=== PATIENT | female | born 1970 | race Hispanic/Latino ===

== ENCOUNTER 2017-10-07 18:00 | Inpatient (IN) | payer OTHER ==
[~2017-10-07] VITALS: Ht 157.5 cm; Wt 112.8 kg
[2017-10-07] MEDS ORDERED: ONDANSETRON HCL 4 MG/2 ML VIAL ONE (18:30)
[2017-10-07] MEDS ORDERED: DICYCLOMINE HCL 10 MG/ML 2ML AMP IM ONE (18:31)
[2017-10-07] MEDS ORDERED: FAMOTIDINE/PF 20 MG/2 ML VIAL IV ONE (18:31)
[2017-10-07] MEDS ORDERED: SODIUM CHLORIDE 0.9% 1000ML 1,000 ML IV ONE (18:31)
[2017-10-07] MEDS ORDERED: KETOROLAC TROMETHAMINE 30MG/ML ONE (18:31)
[2017-10-07 18:44] LABS: BASOPHILS % (AUTO) 0.8 % (0.0-5.0); LYMPHOCYTES % (AUTO) 12.2 % (21.0-51.0); MEAN CORPUSCULAR HEMOGLOBIN 23.6 pg (27.0-33.0); MEAN CORPUSCULAR VOLUME 71.4 fL (79-99); MONOCYTES % (AUTO) 5.3 % (3.0-13.0); NEUTROPHILS % (AUTO) 80.7 % (40.0-77.0); PLATELET COUNT (AUTO) 330 K/uL (130-400); RED BLOOD CELL COUNT(AUTO) 4.62 MIL/uL (4.00-5.50); RED CELL DISTRIBUTION WIDTH 17.5 % (11.0-15.5); WHITE BLOOD COUNT (AUTO) 10.3 K/uL (4.8-10.8)
[2017-10-07 18:58] LABS: CREATININE 0.8 mg/dL (0.5-1.5); POTASSIUM 3.5 mmol/L (3.5-5.1)
[2017-10-07 19:01] LABS: APPEARANCE,URINE CLOUDY (CLEAR); BILIRUBIN,URINE SMALL (NEGATIVE); GLUCOSE, URINE (UA) NEGATIVE (NEGATIVE); KETONES,URINE 5 mg/dL (NEGATIVE); LEUKOCYTE ESTERASE ,URINE TRACE (NEGATIVE); NITRATE,URINE NEGATIVE (NEGATIVE); OCCULT BLOOD,URINE LARGE (NEGATIVE); PH,URINE 6.5 (5.0-8.0); PROTEIN,URINE 30 (NEGATIVE)
[2017-10-07 19:02] LABS: ALBUMIN 3.7 g/dL (3.5-5.0); BILIRUBIN,TOTAL 1.4 mg/dL (0.2-1.0); TOTAL PROTEIN, SERUM 8.1 g/dL (6.0-8.3)
[2017-10-07 19:05] LABS: COLOR,URINE AMBER (YELLOW)
[2017-10-07 19:06] LABS: HCG,QUAL RESULT NEGATIVE (NEGATIVE)
[2017-10-07 19:21] LABS: RBC,URINE >100 /HPF (0-1)
[2017-10-07 19:22] LABS: BACTERIA,URINE Few /HPF (None Seen); SQUAMOUS EPITHELIAL CELL,UR Few /HPF (0-2)
[2017-10-07] MEDS ORDERED: KETOROLAC TROMETHAMINE 15MG/ML ONE (20:21)
[2017-10-07] MEDS ORDERED: IOPAMIDOL-370 75 ML VIAL IV ONE (20:24)
[2017-10-07 22:10] VITALS: BP 153/96
[2017-10-07] MEDS: SODIUM CHLORIDE 0.9% 1000ML 1,000 ML IV SCH (22:45)
[2017-10-07] MEDS ORDERED: PROMETHAZINE HCL 25 MG/ML 1ML AMPULE IM SCH (23:00)
[2017-10-07] MEDS ORDERED: PROMETHAZINE HCL 25 MG/ML 1ML AMPULE IM ONE (23:03)
[2017-10-07 23:39] VITALS: BP 148/84
[2017-10-08] MEDS: KETOROLAC TROMETHAMINE 30MG/ML IV PRN ×2 (02:26→08:11)
[2017-10-08 04:00] VITALS: BP 133/74
[2017-10-08 05:17] LABS: HEMATOCRIT 31.2 % (36-48); MEAN CORPUSCULAR HEMOGLOBIN 23.2 pg (27.0-33.0); MEAN CORPUSCULAR HGB CONC 32.7 g/dL (32.0-36.0); MEAN CORPUSCULAR VOLUME 71.1 fL (79-99); NUCLEATED RED BLOOD CELLS 0.1 % (0.0-0.19); PLATELET COUNT (AUTO) 324 K/uL (130-400); RED BLOOD CELL COUNT(AUTO) 4.39 MIL/uL (4.00-5.50); RED CELL DISTRIBUTION WIDTH 17.1 % (11.0-15.5); WHITE BLOOD COUNT (AUTO) 7.3 K/uL (4.8-10.8)
[2017-10-08] MEDS: SODIUM CHLORIDE 0.9% 1000ML 1,000 ML IV SCH ×2 (05:30→11:08)
[2017-10-08 05:34] LABS: ALBUMIN 3.2 g/dL (3.5-5.0); CREATININE 0.7 mg/dL (0.5-1.5); POTASSIUM 3.9 mmol/L (3.5-5.1); TOTAL PROTEIN, SERUM 7.2 g/dL (6.0-8.3)
[2017-10-08 08:15] VITALS: BP 129/79
[2017-10-08] MEDS ORDERED: GADOBENATE DIMEGLUMINE 20 ML IV ONE (10:46)
[2017-10-08 12:17] VITALS: BP 134/76
[2017-10-08 16:42] VITALS: BP 129/76
[2017-10-08 18:38] LABS: % IRON SATURATION 8.7 % (22-44)
[2017-10-08 19:49] VITALS: BP 141/78
[2017-10-08 23:44] VITALS: BP 118/61
[2017-10-09] VITALS (23 sets, daily range): BP systolic 121–179; BP diastolic 67–106
[2017-10-09] MEDS: ONDANSETRON HCL 4 MG/2 ML VIAL IVP PRN ×2 (01:13→17:35)
[2017-10-09 05:36] LABS: EOSINOPHILS % (AUTO) 2.1 % (0.0-8.0); HEMATOCRIT 31.4 % (36-48); LYMPHOCYTES % (AUTO) 20.4 % (21.0-51.0); MEAN CORPUSCULAR HEMOGLOBIN 23.5 pg (27.0-33.0); MEAN CORPUSCULAR HGB CONC 32.5 g/dL (32.0-36.0); MEAN CORPUSCULAR VOLUME 72.3 fL (79-99); MONOCYTES % (AUTO) 6.8 % (3.0-13.0); NEUTROPHILS % (AUTO) 69.7 % (40.0-77.0); PLATELET COUNT (AUTO) 287 K/uL (130-400); RED BLOOD CELL COUNT(AUTO) 4.34 MIL/uL (4.00-5.50); RED CELL DISTRIBUTION WIDTH 17.2 % (11.0-15.5); WHITE BLOOD COUNT (AUTO) 6.8 K/uL (4.8-10.8)
[2017-10-09] MEDS: SODIUM CHLORIDE 0.9% 1000ML 1,000 ML IV SCH (08:10)
[2017-10-09] MEDS: KETOROLAC TROMETHAMINE 30MG/ML IV PRN ×2 (11:10→17:31)
[2017-10-09] MEDS ORDERED: ISOVUE-370 50ML VIAL IV ONE (11:15)
[2017-10-09] MEDS ORDERED: INDOMETHACIN 50 MG SUPP.RECT RC SCH (12:00)
[2017-10-09] MEDS ORDERED: FENTANYL CITRATE PF 50 MCG/1 ML 2ML VIAL ONE (13:22)
[2017-10-09] MEDS ORDERED: PROPOFOL 1000 MG/100 ML 100 ML IV ONE (13:22)
[2017-10-09] MEDS ORDERED: LEVOFLOXACIN 500 MG/D5W 100 ML 100 ML ONE (14:17)
[2017-10-09] MEDS ORDERED: MORPHINE SULFATE 2 MG/ML 1ML SYG IVP SCH (20:45)
[2017-10-09] MEDS ORDERED: MORPHINE SULFATE 2 MG/ML 1ML SYG ONE (21:04)
[2017-10-09] MEDS: PROMETHAZINE HCL 25 MG/ML 1ML AMPULE IM PRN (21:10)
[2017-10-10 04:25] VITALS: BP 143/82
[2017-10-10] MEDS: KETOROLAC TROMETHAMINE 30MG/ML IV PRN (04:43)
[2017-10-10 08:00] VITALS: BP 113/55
[2017-10-10] MEDS: SODIUM CHLORIDE 0.9% 1000ML 1,000 ML IV SCH ×2 (10:50→22:34)
[2017-10-10 11:00] VITALS: BP 109/67
[2017-10-10 15:43] VITALS: BP 117/66
[2017-10-10 20:25] VITALS: BP 144/85
[2017-10-10] MEDS: ACETAMINOPHEN-CODEINE 300/30MG TAB PO PRN (21:47)
[2017-10-11] VITALS (25 sets, daily range): BP systolic 109–158; BP diastolic 61–97
[2017-10-11] MEDS: SODIUM CHLORIDE 0.9% 1000ML 1,000 ML IV SCH ×2 (13:30→22:37)
[2017-10-11] MEDS ORDERED: BUPIVACAINE/PF 0.5% 30ML VIAL ONE (13:47)
[2017-10-11] MEDS ORDERED: EPINEPHRINE 1 MG/ML AMPULE ONE (13:47)
[2017-10-11] MEDS ORDERED: ISOVUE-370 50ML VIAL IV ONE (17:48)
[2017-10-11] MEDS: ONDANSETRON HCL 4 MG/2 ML VIAL IVP PRN ×2 (18:02→21:49)
[2017-10-11] MEDS: KETOROLAC TROMETHAMINE 30MG/ML IV PRN (18:02)
[2017-10-11] MEDS ORDERED: LACTATED RINGERS 1000ML 1,000 ML IV ONE (18:41)
[2017-10-11] MEDS ORDERED: ONDANSETRON HCL 4 MG/2 ML VIAL ONE ×2 (19:07→21:47)
[2017-10-11] MEDS ORDERED: DEXAMETHASONE SOD PHOSPHATE 10MG/ML 1ML VIAL ONE (19:08)
[2017-10-11] MEDS ORDERED: PROPOFOL 10 MG/ML 20ML VIAL IV ONE (19:08)
[2017-10-11] MEDS ORDERED: MIDAZOLAM HCL 1 MG/ML 2ML VIAL ONE (19:08)
[2017-10-11] MEDS ORDERED: NEOSTIGMINE 5MG/5ML SYR IV ONE (19:08)
[2017-10-11] MEDS ORDERED: GLYCOPYRROLATE 0.2 MG/ML 5 ML VIAL ONE (19:08)
[2017-10-11] MEDS ORDERED: LIDOCAINE PF 2% 5ML ABBOJECT ONE (19:08)
[2017-10-11] MEDS ORDERED: FENTANYL CITRATE PF 50 MCG/1 ML 2ML VIAL ONE ×2 (19:09→20:17)
[2017-10-11] MEDS ORDERED: CEFAZOLIN SODIUM 1 GM VIAL IVP ONE (20:09)
[2017-10-11] MEDS ORDERED: MEPERIDINE-PF 25 MG/ML SYG ONE (21:27)
[2017-10-11] MEDS: ACETAMINOPHEN-CODEINE 300/30MG TAB PO PRN (22:38)
[2017-10-11] MEDS ORDERED: ACETAMINOPHEN 325 MG TAB PO PRN (22:45)
[2017-10-11] MEDS ORDERED: TRAMADOL HCL 50 MG TABLET PO PRN (22:45)
[2017-10-11] MEDS: PROMETHAZINE HCL 25 MG/ML 1ML AMPULE IM PRN (23:31)
[2017-10-12 00:07] VITALS: BP 144/90
[2017-10-12 00:37] VITALS: BP 142/87
[2017-10-12 01:07] VITALS: BP 139/92
[2017-10-12] MEDS: SODIUM CHLORIDE 0.9% 1000ML 1,000 ML IV SCH (02:02)
[2017-10-12] MEDS: KETOROLAC TROMETHAMINE 30MG/ML IV PRN (04:01)
[2017-10-12 04:22] VITALS: BP 120/86
[2017-10-12 05:12] LABS: HEMATOCRIT 35.6 % (36-48); MEAN CORPUSCULAR HEMOGLOBIN 23.1 pg (27.0-33.0); MEAN CORPUSCULAR HGB CONC 31.8 g/dL (32.0-36.0); MEAN CORPUSCULAR VOLUME 72.5 fL (79-99); PLATELET COUNT (AUTO) 319 K/uL (130-400); RED BLOOD CELL COUNT(AUTO) 4.91 MIL/uL (4.00-5.50); RED CELL DISTRIBUTION WIDTH 17.6 % (11.0-15.5); WHITE BLOOD COUNT (AUTO) 10.7 K/uL (4.8-10.8)
[2017-10-12 05:14] LABS: CREATININE 0.6 mg/dL (0.5-1.5); POTASSIUM 4.1 mmol/L (3.5-5.1)
[2017-10-12 05:24] LABS: BAND NEUTROPHILS % (MANUAL) 1 % (0-2); LYMPHOCYTES % (MANUAL) 11 % (22-44); MAN.DIFF COMMENT-IMPRESSION MANUAL DIFFERENTIAL; MONOCYTES % (MANUAL) 1 % (2-9); SEGMENTED NEUTROPHILS % 87 % (40-70)
[2017-10-12 05:25] LABS: PLATELET MORPHOLOGY COMMENT ADEQUATE
[2017-10-12 07:00] VITALS: BP 121/65
[2017-10-12] MEDS ORDERED: DOCUSATE SODIUM 100 MG CAP PO ONE (09:00)
[2017-10-12 11:00] VITALS: BP 109/66
== END 2017-10-12 14:30 | disposition home or self-care (01) | DRG 263 ==
LOC: EDH 18:00 → EDHIP 21:31 → 3AH 22:04
PROVIDERS: ADMIT Internal Medicine Nephrology; ATTEND Internal Medicine Nephrology
PROC: BF101ZZ Fluoroscopy of Bile Ducts using Low Osmolar Contrast (ICD-10-PCS; 2017-10-11)
PROC: 0FC98ZZ Extirpation of Matter from Common Bile Duct, Via Natural or Artificial Opening Endoscopic (ICD-10-PCS; 2017-10-11)
PROC: 0FT44ZZ Resection of Gallbladder, Percutaneous Endoscopic Approach (ICD-10-PCS; principal; 2017-10-11 19:48)
PROC: 0F798ZZ Dilation of Common Bile Duct, Via Natural or Artificial Opening Endoscopic (ICD-10-PCS; 2017-10-11 19:48)
DX: K80.70 Calculus of gallbladder and bile duct without cholecystitis without obstruction (principal); E66.01 Morbid (severe) obesity due to excess calories; K76.0 Fatty (change of) liver, not elsewhere classified; Z68.42 Body mass index [BMI] 45.0-49.9, adult; D50.0 Iron deficiency anemia secondary to blood loss (chronic); I10 Essential (primary) hypertension; K42.9 Umbilical hernia without obstruction or gangrene; K59.00 Constipation, unspecified; N92.0 Excessive and frequent menstruation with regular cycle; Z83.3 Family history of diabetes mellitus; Z98.51 Tubal ligation status
CPT/HCPCS: 36415; 74177; 74181; 74300; 74330; 76705; 80048; 80053; 81001; 81025; 83540; 83550; 83690; 85025; 85027; 88304; A9577; C1758; C1769; C1773; J0171; J0500; J0690; J1100; J1885; J1956; J2001; J2175; J2250; J2405; J2550; J2704; J2710; J3010; J3490; J7030; J7120; Q9967